=== PATIENT | male | born 1955 | race Caucasian/White ===

== ENCOUNTER 2017-04-10 08:26 | Day surgery (SDC) | payer BC ==
[2017-04-10] MEDS ORDERED: PROPOFOL 10 MG/ML VIAL IV ONE (14:39)
[2017-04-10] MEDS ORDERED: MIDAZOLAM HCL 2MG/2ML VIAL IV ONE (14:39)
[2017-04-10] MEDS ORDERED: LIDOCAINE 2% MDV (20MG/ML) 20ML VIAL IV ONE (14:39)
--- NOTE | 2017-04-16 09:22 | Operative Note ---
DATE OF SURGERY: 04/10/2017 SURGEON: Doyle Estrada MD OPERATION: COLONOSCOPY. INDICATIONS: This is a 62-year-old male with average risk for colorectal cancer who presented for screening colonoscopy. POSTOPERATIVE DIAGNOSES: 1. Suboptimal bowel preparation. 2. A 6 mm sessile polyp in the cecum that was removed by cold snare. 3. Scattered colonic diverticulosis. 4. An 8 mm sessile polyp in the sigmoid colon that was removed by snare cautery. 5. Grade 1 internal hemorrhoids. ANESTHESIA: Sedation is per Anesthesia. Pulse oximetry was monitored throughout the procedure to maintain O2 saturation of 90% or greater. Supplemental oxygen was administered via nasal cannula. Cardiac and vital signs were monitored throughout the duration of the procedure, and they were stable. The procedure of colonoscopy and risks and alternatives of the procedure, including the risk of bleeding and perforation, among others, were explained to the patient who voiced understanding and agreed to have the procedure done. Physical examination was performed, and the patient was found stable for sedation. PROCEDURE: The patient was placed in the left lateral position. Sedation was initiated. A digital rectal exam was performed and showed some mild external hemorrhoids with no palpable rectal masses. An Olympus PCF-180AL colonoscope was then inserted into the rectum under direct visualization. It was advanced to the cecum with difficulty. The difficulty was mostly due to redundancy of the sigmoid colon and floppiness of the colonoscope that required external abdominal wall compression, changing patient position, increased sedation, and change of scope to another scope subsequently. The colonic mucosa was carefully examined upon introduction of the colonoscope. There were scattered diverticula noted in the sigmoid, descending, and ascending colon. The bowel preparation was suboptimal with solid stool debris in some segments of the colon, especially in the right colon. The colonoscope was then withdrawn while carefully examining the colonic mucosal surfaces. A 6 mm sessile polyp was noted in the cecum that was removed by cold snare. The rest of the cecum, ascending colon, and transverse colon revealed no other lesions. In the sigmoid colon was an 8 mm sessile polyp that was noted and was removed by snare cautery. The rest of the colonic mucosa appeared normal. In the rectum, retroflexion was performed and grade 1 internal hemorrhoids were noted. The colonoscope was then withdrawn and the procedure was terminated. The patient tolerated the procedure well without any immediate complications. He remained with stable vital signs and was transferred to the recovery room. RECOMMENDATIONS: 1. The patient should be on a low-residue diet for 2 weeks and to avoid any aspirin or aspirin-like medications for 2 weeks. 2. The patient is to have a repeat colonoscopy for surveillance in 1 to 2 to 3 years depending on the histology of the polyps given the suboptimal bowel preparation. Thank you for allowing me to participate in the care of your patient. CC: Lisbeth Fuchs Doyle Estrada MD Date/Time [facility]
== END 2017-04-10 17:21 | disposition home or self-care (01) ==
LOC: HOP 08:26
PROVIDERS: ATTEND Internal Medicine Gastroenterology
DX: Z12.11 Encounter for screening for malignant neoplasm of colon (principal); D12.0 Benign neoplasm of cecum; D12.5 Benign neoplasm of sigmoid colon; K57.30 Diverticulosis of large intestine without perforation or abscess without bleeding; K64.0 First degree hemorrhoids